=== PATIENT | female | born 1990 | race Caucasian/White ===

== ENCOUNTER 2020-11-15 09:43 | Emergency (ER) | payer BC ==
[~2020-11-15] VITALS: Ht 172.7 cm; Wt 99.8 kg
[2020-11-15 09:43] VITALS: BP_SYST 124
[2020-11-15] MEDS ORDERED: MECLIZINE HCL 25 MG TABLET (ANITVERT) PO ONE (10:15)
[2020-11-15 11:39] VITALS: BP_SYST 124
== END 2020-11-15 11:39 | disposition home or self-care (01) ==
LOC: SED 09:43
DX: H81.10 Benign paroxysmal vertigo, unspecified ear (principal)
CPT/HCPCS: 70450; 76376; 99284; J8597